=== PATIENT | female | born 1985 | race Caucasian/White ===

== ENCOUNTER 2016-09-15 13:13 | Emergency (ER) | payer MEDICAID, OTHER ==
[2016-09-15 13:39] VITALS: BP 142/54
--- NOTE | 2016-09-15 13:59 | EDM.PDOC ---
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 Reports pain and discomfort with weightbearing. She has swelling of her left ankle. She denies any prior history of ankle difficulties. She complains of pain along the lateral ankle gutter. She denies any tenderness proximally. She presents to the emergency room with only complaints of ankle pain no other injuries are reported. Symptom Onset Date: 09/15/16 Occurred When: this morning Occurred Where: work Method of Injury: other (inversion injury to the left ankle) Severity: moderate Pain/Injury Location: Reports: lower extremity, left Consciousness: Reports: no loss of consciousness, remembers incident Associated Symptoms: Reports: no other symptoms Allergies/ADRs: Allergies Sulfa (Sulfonamide Antibiotics) Allergy (Verified 09/15/16 13:33) Vaginitis Home Medications: Ambulatory Orders Levonorgestrel [Mirena] 1 each IY ONETIME 06/27/16 [Confirmed 06/27/16] Past Medical History Genitourinary History: Reports: Renal calculus, Other (see below) Other Genitourinary History: in past Social & Family History - Tobacco Use Smoking Status *Q: Former Smoker Years of Tobacco use: 15 Packs/Tins Daily: 1 Used Tobacco, but Quit: No Second Hand Smoke Exposure: Yes - Caffeine Use Caffeine Use: Reports: Coffee, Soda - Alcohol Use Days Per Week of Alcohol Use: 1 Number of Drinks Per Day: 1 Total Drinks Per Week: 1 - Recreational Drug Use Recreational Drug Use: No Review of Systems - Review of Systems Review Of Systems: See Below Musculoskeletal: Reports: joint pain (left ankle), joint swelling (left ankle) Skin: Reports: no symptoms, other (tattoos of the left foot). Denies: bruising , erythema Neurological: Denies: Numbness Trauma Exam - Physical Exam Exam: See Below General Appearance: Reports: alert, WD/WN, no apparent distress Head: Reports: atraumatic, normocephalic Throat/Mouth: Reports: Normal voice, No airway compromise Extremities: Reports: bony-point tenderness, pain with movement, tenderness, unable to bear weight, other (left lower extremity shows swelling about the left ankle gutter. She's tender over the ATF ligament. She has mild tenderness over the distal fibula she has no tenderness along the medial ankle gutter or medial malleolus. Her Achilles is intact with good pushoff strength she has intact sensation of light touch pulses are 2+. She has pain with ankle motion but is able to dorsiflex about a neutral position with minimal discomfort. She is able to plantar flex about 30. She has no tenderness proximally at the fibula head or at the knee. Her knee is atraumatic on the left right lower extremity shows normal ankle knee range of motion no evidence of trauma) Neurologic: Reports: alert, normal mood/affect, oriented x 3 Skin: Reports: Normal color, Warm/dry. Denies: Ecchymosis Course - Vital Signs Last Recorded V/S: Last Vital Signs Temp 98.4 F 09/15/16 13:27 Pulse 83 09/15/16 13:27 Resp 18 09/15/16 13:27 BP 142/54 H 09/15/16 13:27 Pulse Ox 99 09/15/16 13:27 - Orders/Labs/Meds Orders: Active Orders 24 hr Category Date Time Status Ankle Min 3V Lt [CR] Stat Exams 09/15/16 13:25 Taken - Radiology Interpretation Free Text/Narrative:: X-ray 3 views left ankle Impression: Negative for acute fracture left ankle Departure - Departure Time of Disposition: 14:02 Disposition: Home, Self-Care 01 Condition: good Clinical Impression: Left ankle sprain Qualifiers: Encounter type: initial encounter Involved ligament of ankle: tibiofibular ligament Qualified Code(s): S93.432A - Sprain of tibiofibular ligament of left ankle, initial encounter Instructions: How to Use a Stirrup Ankle Brace, [id number], Ankle Sprain, Acute Ankle Sprain With Phase I Rehab-SportsMed Referrals: Allison Cooley MD [Primary Care Provider] - Forms: ED Department Discharge Additional Instructions: 1. RICE 2. NSAID, ibuprofen 800 mg 3 times a day with food for pain, swelling left ankle 3. Crutches as needed. He may weight-bear as tolerated on her left ankle. 4. Continue with air stirrup splint for 4-6 weeks. 5. Recommend physical therapy to begin in 2 weeks for range of motion strengthening modality exercises for ankle sprain. 6. Followup with her primary care in 2 weeks for recheck. - My Orders Last 24 Hours: My Active Orders 09/15/16 13:25 Ankle Min 3V Lt [CR] Stat - Assessment/Plan Last 24 Hours: My Active Orders 09/15/16 13:25 Ankle Min 3V Lt [CR] Stat Assessment:: Left ankle sprain Plan: 1. RICE 2. Ibuprofen 800 mg 3 times a day with food for pain, swelling left ankle 3. Air stirrup splint left ankle to be worn for 6 weeks to protect re-injury. 4. Crutches as needed. Patient may weight-bear as tolerated on the left 5. Followup with primary care in 2 weeks for clinical recheck. Would suggest beginning physical therapy for range of motion strengthening and allergies and eventually proprioception for left ankle.
== END 2016-09-15 14:25 | disposition home or self-care (01) ==
LOC: KA.ED 13:13
DX: S93.432A Sprain of tibiofibular ligament of left ankle, initial encounter (principal); Z87.891 Personal history of nicotine dependence; Z88.2 Allergy status to sulfonamides; X58.XXXA Exposure to other specified factors, initial encounter; Y93.89 Activity, other specified; Y92.89 Other specified places as the place of occurrence of the external cause; Y99.0 Civilian activity done for income or pay
CPT/HCPCS: 73610-LT; 99283

== ENCOUNTER 2017-02-03 15:37 | Emergency (ER) | payer OTHER, MEDICAID ==
[2017-02-03] MEDS ORDERED: Sodium Chloride 0.9% 1,000 ML IV ONE (16:00)
[2017-02-03] MEDS ORDERED: Sodium Chloride 0.9% 5 ML Syringe FLUSH PRN (16:00)
[2017-02-03] MEDS ORDERED: Acetaminophen 500 MG Tab PO ONE (16:00)
[2017-02-03] MEDS: Ondansetron 4 MG/2 ML SDV IVPUSH ONE ×2 (16:51→16:53)
--- NOTE | 2017-02-03 16:53 | EDM.PDOC ---
ED HPI GENERAL MEDICAL PROBLEM - General Chief Complaint: General Stated Complaint: NAUSEA Time Seen by Provider: 02/03/17 15:55 Source of Information: Reports: Patient History Limitations: Reports: No Limitations - History of Present Illness INITIAL COMMENTS - FREE TEXT/NARRATIVE: 31 YO WF presents to ER complaining of generalized weakness, fever/chills and body aches x 2 days. Pt reports she was seen in clinic and had labs drawn- pending results. Pt was sent home on levaquin/hydrocodone/zofran for unknown illness. Pt reports today she feels worse- nausea and vomiting as well as mild headache prompting ER evaluation. Pt denies any cough/congestion, denies any dysuria/frequency or urgency Onset Date: 02/01/17 Duration: Day(s): (2) Location: Reports: Generalized Quality: Reports: Ache Severity: Mild Improves with: Reports: Rest Worsens with: Reports: Movement Associated Symptoms: Reports: Fever/Chills, Loss of Appetite, Malaise, Nausea/ Vomiting. Denies: Confusion, Chest Pain, Cough, cough w sputum, Diaphoresis, Rash, Seizure, Shortness of Breath, Syncope, Weakness - Related Data Allergies Allergy/AdvReac Type Severity Reaction Status Date / Time Sulfa (Sulfonamide Allergy Vaginitis Verified 09/15/16 13:33 Antibiotics) Home Meds: Home Meds Levonorgestrel [Mirena] 1 each IY ONETIME 06/27/16 [History] Past Medical History HEENT History: Reports: None Gastrointestinal History: Reports: None Genitourinary History: Reports: Renal Calculus, Other (See Below) Other Genitourinary History: in past [employer] History: Reports: Musculoskeletal History: Reports: Fracture Neurological History: Reports: None Psychiatric History: Reports: ADD Endocrine/Metabolic History: Reports: None Hematologic History: Reports: None Immunologic History: Reports: None Oncologic (Cancer) History: Reports: None Dermatologic History: Reports: None - Infectious Disease History Infectious Disease History: Reports: Chicken Pox, Influenza - Past Surgical History HEENT Surgical History: Reports: Eye Surgery Female Surgical History: Reports: Section Musculoskeletal Surgical History: Reports: Other (See Below) Social & Family History - Tobacco Use Smoking Status *Q: Former Smoker Years of Tobacco use: 15 Packs/Tins Daily: 1 Used Tobacco, but Quit: No Second Hand Smoke Exposure: Yes - Caffeine Use Caffeine Use: Reports: Coffee, Soda - Alcohol Use Days Per Week of Alcohol Use: 1 Number of Drinks Per Day: 1 Total Drinks Per Week: 1 - Recreational Drug Use Recreational Drug Use: No ED ROS GENERAL - Review of Systems Review Of Systems: See Below Constitutional: Reports: Fever, Chills, Malaise, Weakness, Fatigue HEENT: Reports: No Symptoms Respiratory: Reports: No Symptoms Cardiovascular: Reports: No Symptoms Endocrine: Reports: No Symptoms GI/Abdominal: Reports: No Symptoms : Reports: No Symptoms Musculoskeletal: Reports: Muscle Pain Skin: Reports: No Symptoms Neurological: Reports: No Symptoms Psychiatric: Reports: No Symptoms Hematologic/Lymphatic: Reports: No Symptoms Immunologic: Reports: No Symptoms ED EXAM, GENERAL - Physical Exam Exam: See Below Exam Limited By: No Limitations General Appearance: Alert, WD/WN, No Apparent Distress Ears: Normal External Exam, Normal Canal, Hearing Grossly Normal, Normal TMs Ear Exam: Bilateral Ear: Auricle Normal, Canal Normal, TM normal Nose: Normal Inspection, Normal Mucosa, No Blood Throat/Mouth: Normal Inspection, Normal Lips, Normal Teeth, Normal Gums, Normal Oropharynx, Normal Voice, No Airway Compromise Head: Atraumatic, Normocephalic Neck: Normal Inspection, Supple, Non-Tender, Full Range of Motion Respiratory/Chest: No Respiratory Distress, Lungs Clear, Normal Breath Sounds, No Accessory Muscle Use, Chest Non-Tender Cardiovascular: Normal Peripheral Pulses, Regular Rate, Rhythm, No Edema, No Gallop, No JVD, No Murmur, No Rub GI/Abdominal: Normal Bowel Sounds, Soft, Non-Tender, No Organomegaly, No Distention, No Abnormal Bruit, No Mass Back Exam: Normal Inspection, Full Range of Motion, NT Extremities: Normal Inspection, Normal Range of Motion, Non-Tender, Normal Capillary Refill, No Pedal Edema Neurological: Alert, Oriented, CN II-XII Intact, Normal Cognition, Normal Gait, Normal Reflexes, No Motor/Sensory Deficits Psychiatric: Normal Affect, Normal Mood Skin Exam: Warm, Dry, Intact, Normal Color, No Rash Lymphatic: No Adenopathy Course - Orders/Labs/Meds Orders: Active Orders 24 hr Category Date Time Status Peripheral IV Care [RC] . DIRECTED Care 02/03/17 16:01 Active Chest 2V [CR] Stat Exams 02/03/17 16:00 Taken Sodium Chloride 0.9% [Syrex Flush] Med 02/03/17 16:00 Active 5 ml FLUSH Q8HR PRN Peripheral IV Insertion Adult [OM.PC] Routine Oth 02/03/17 16:00 Ordered Medication Orders Sodium Chloride (Syrex Flush) 5 ml FLUSH Q8HR PRN PRN Reason: Keep Vein Open Last Admin: 02/03/17 16:55 Dose: 5 ml Labs: Laboratory Tests 02/03/17 02/03/17 02/03/17 Range/Units 16:30 16:30 16:35 WBC 9.2 (5.0-10.0) 10^3/uL RBC 4.63 (3.80-5.50) 10^6/uL Hgb 14.4 (12.0-16.0) g/dL Hct 42.8 (37.0-47.0) % MCV 92.4 H (82.0-92.0) fL MCH 31.0 (27.0-31.0) pg MCHC 33.5 (32.0-36.0) g/dL RDW 12.1 (11.5-14.5) % Plt Count 186 (150-300) 10^3/uL MPV 9.1 (7.4-10.4) fL Neut % (Auto) 70.3 H (50.0-70.0) % Lymph % (Auto) 13.0 L (20.0-40.0) % Morgan % (Auto) 15.7 H (2.0-8.0) % Eos % (Auto) 0.8 L (1.0-3.0) % Baso % (Auto) 0.2 (0.0-1.0) % Neut # (Auto) 6.5 (2.5-7.0) 10^3/uL Lymph # (Auto) 1.2 (1.0-4.0) 10^3/uL Morgan # (Auto) 1.4 H (0.1-0.8) 10^3/uL Eos # (Auto) 0.1 (0.1-0.3) 10^3/uL Baso # (Auto) 0.0 (0.0-0.1) 10^3/uL Sodium 136 (136-145) mmol/L Potassium 3.4 (3.3-5.3) mmol/L Chloride 99 (98-115) mmol/L Carbon Dioxide 23.5 (21.0-32.0) mmol/L BUN 5 L (6-25) mg/dL Creatinine 0.82 (0.51-1.17) mg/dL Est Cr Clr Drug Dosing TNP Estimated GFR (MDRD) > 60 mL/min Glucose 119 H (70-110) mg/dL Calcium 8.8 (8.7-10.3) mg/dL Total Bilirubin 0.5 (0.2-1.0) mg/dL AST 15 (15-37) U/L ALT 20 (12-78) U/L Alkaline Phosphatase 104 (46-116) IU/L Total Protein 8.0 (6.4-8.2) g/dL Albumin 3.43 (3.00-4.80) g/dL Lipase 69 L (73-393) U/L HCG, Qual Negative (NEGATIVE) Specimen Type Urinmid Urine Color Yellow (YELLOW) Urine Appearance Slightly cloudy H (CLEAR) Urine pH 6.0 (5.0-9.0) Ur Specific [place] 1.025 (1.005-1.030) Urine Protein 30 H (NEGATIVE) mg/dL Urine Glucose (UA) Negative (NEGATIVE) mg/dL Urine Ketones 80 H (NEGATIVE) mg/dL Urine Occult Blood Large H (NEGATIVE) Urine Nitrite Negative (NEGATIVE) Urine Bilirubin Small H (NEGATIVE) Urine Urobilinogen 2.0 H (0.2-1.0) E.U./dL Ur Leukocyte Esterase Trace H (NEGATIVE) Urine RBC 5-10 H /HPF Urine WBC 5-10 H /HPF Ur Epithelial Cells Many H /LPF Urine Bacteria Many H (NONE TO FEW) /HPF Meds: Medications Generic Name Dose Route Start Last Admin Trade Name Freq PRN Reason Stop Dose Admin Sodium Chloride 5 ml 02/03/17 16:00 02/03/17 16:55 Syrex Flush FLUSH 5 ml Q8HR PRN Administration Keep Vein Open Discontinued Medications Generic Name Dose Route Start Last Admin Trade Name Freq PRN Reason Stop Dose Admin Acetaminophen 1,000 mg 02/03/17 16:00 02/03/17 16:54 Tylenol Extra Strength PO 02/03/17 16:01 1,000 mg ONETIME ONE Administration Sodium Chloride 1,000 mls @ 999 mls/hr 02/03/17 16:00 02/03/17 16:48 Normal Saline IV 02/03/17 17:00 999 mls/hr .BOLUS ONE Administration Metoclopramide HCl Confirm 02/03/17 17:10 Reglan Administered 02/03/17 17:11 Dose 10 mg .ROUTE .STK-MED ONE Metoclopramide HCl 10 mg 02/03/17 17:16 Reglan IVPUSH 02/03/17 17:17 ONETIME ONE Ondansetron HCl 4 mg 02/03/17 16:00 02/03/17 16:53 Zofran IVPUSH 02/03/17 16:01 4 mg ONETIME ONE Administration - Radiology Interpretation Free Text/Narrative:: CXR- NAD Departure - Departure Time of Disposition: 17:22 Disposition: Home, Self-Care 01 Condition: Good Clinical Impression: Urinary tract infection Qualifiers: Urinary tract infection type: acute cystitis Hematuria presence: without hematuria Qualified Code(s): N30.00 - Acute cystitis without hematuria Vomiting Qualifiers: Vomiting Intractability: intractable - Discharge Information Instructions: Nausea and Vomiting, Adult, Urinary Tract Infection, Adult, Easy- to-Read Referrals: Maida Cooley MD [Primary Care Provider] - Forms: ED Department Discharge - My Orders Last 24 Hours: My Active Orders 02/03/17 16:00 Chest 2V [CR] Stat Sodium Chloride 0.9% [Syrex Flush] 5 ml FLUSH Q8HR PRN Peripheral IV Insertion Adult [OM.PC] Routine 02/03/17 16:01 Peripheral IV Care [RC] . DIRECTED - Assessment/Plan Last 24 Hours: My Active Orders 02/03/17 16:00 Chest 2V [CR] Stat Sodium Chloride 0.9% [Syrex Flush] 5 ml FLUSH Q8HR PRN Peripheral IV Insertion Adult [OM.PC] Routine 02/03/17 16:01 Peripheral IV Care [RC] . DIRECTED Assessment:: 1. nausea/vomiting 2. urinary tract infection Plan: 1. continue levaquin 2. continue zofran 4mg ODT q6 PRN 3. push oral fluids 4. follow up in clinic sunday02/05/17 for further evaluation and treatment
[2017-02-03 16:57] LABS: CHLORIDE,CL 99 mmol/L (98-115); SODIUM,NA 136 mmol/L (136-145)
[2017-02-03] MEDS ORDERED: Metoclopramide 10 MG/2 ML SDV IVPUSH ONE (17:16)
[2017-02-03] MEDS: Metoclopramide 10 MG/2 ML SDV ONE (17:53)
[2017-02-03 18:39] VITALS: BP 116/49
[2017-02-05] MEDS: Metoclopramide 10 MG/2 ML SDV ONE (11:02)
== END 2017-02-03 18:00 | disposition home or self-care (01) ==
LOC: KA.ED 15:37
DX: N30.00 Acute cystitis without hematuria (principal); R11.2 Nausea with vomiting, unspecified; F98.8 Other specified behavioral and emotional disorders with onset usually occurring in childhood and adolescence; Z88.2 Allergy status to sulfonamides; Z87.891 Personal history of nicotine dependence
CPT/HCPCS: 71020; 80053; 81001; 83690; 84703; 85025; 87086; 96361; 96374; 96375; 99283; A9270; J2405; J2765; J7030